=== PATIENT | male | born 1975 | race Caucasian/White ===

== ENCOUNTER 2022-10-25 08:25 | Emergency (ER) | payer OTHER ==
[~2022-10-25] VITALS: Ht 180.3 cm; Wt 140.2 kg
[2022-10-25 08:40] VITALS: BP 135/79
--- NOTE | 2022-10-25 08:41 | NUR ---
PT AMBULATED TO ER BED 6
--- NOTE | 2022-10-25 08:46 | NUR ---
DR LOPEZ AT BEDSIDE EVALUATING PT
[2022-10-25] MEDS ORDERED: PRED20TA5 PO ×2 (08:50→09:09)
[2022-10-25] MEDS ORDERED: PENI500T20 PO ×2 (08:50→09:09)
[2022-10-25] MEDS ORDERED: PHEN177S23 PO ×2 (08:50→09:09)
--- NOTE | 2022-10-25 08:51 | NUR ---
47YO MALE PT C/O INTERMITTENT FEVERS, HEADACHE AND THROAT PAIN X3DAYS. DRY COUGH PRESENT. THROAT PRESENTS REDDENED W/ WHITE SPOTS NOTED . DENIES RELIEF AFTER DAYQUIL OR SALT WATER GARGLE. PT AAOX4, RESPIRATIONS EVEN AND UNLABORED. PAKO LUNG SOUNDS. HX:DENIES NKA
--- NOTE | 2022-10-25 09:02 | NUR ---
pt swabbed for strep . walked to lab
--- NOTE | 2022-10-25 09:03 | NUR ---
Patient discharged with v/s stable. Written and verbal after care instructions FOR TONSILITIS given and explained. Patient alert, oriented and verbalized understanding of instructions. Ambulatory with steady gait. All questions addressed prior to discharge. ID band removed. Patient advised to follow up with PMD. Rx of PENICILLIN V POTASSIUM, PHENOL AND DELTASONE given. Opportunity to ask questions provided and answered.
--- NOTE | 2022-10-25 09:05 | NUR ---
The patient's care was reviewed and supervised by Micki Redmond RN.
== END 2022-10-25 09:03 | disposition home or self-care (01) ==
LOC: MED 08:25
DX: J03.80 Acute tonsillitis due to other specified organisms (principal); R50.9 Fever, unspecified; R51.9 Headache, unspecified; Z79.899 Other long term (current) drug therapy
CPT/HCPCS: 87081; 99283